=== PATIENT | female | born 1985 | race Caucasian/White ===

== ENCOUNTER 2016-09-11 03:41 | Emergency (ER) | payer MEDICAID ==
[~2016-09-11] VITALS: Ht 165.1 cm; Wt 56.2 kg
[2016-09-11 03:54] VITALS: BP 138/92
== END 2016-09-11 05:09 | disposition home or self-care (01) ==
LOC: ER 03:43
DX: S29.012A Strain of muscle and tendon of back wall of thorax, initial encounter (principal); S16.1XXA Strain of muscle, fascia and tendon at neck level, initial encounter; S66.912A Strain of unspecified muscle, fascia and tendon at wrist and hand level, left hand, initial encounter; V87.8XXA Person injured in other specified noncollision transport accidents involving motor vehicle (traffic), initial encounter; Y93.89 Activity, other specified; Y92.89 Other specified places as the place of occurrence of the external cause; Y99.9 Unspecified external cause status
CPT/HCPCS: 72050; 72074; 73130; 99284; A4606; Z7610

== ENCOUNTER 2016-12-08 00:37 | Emergency (ER) | payer MEDICAID ==
[~2016-12-08] VITALS: Ht 165.1 cm; Wt 56.7 kg
[2016-12-08 00:48] VITALS: BP 124/64
== END 2016-12-08 00:55 | disposition home or self-care (01) ==
LOC: ER 00:38
DX: S90.861A Insect bite (nonvenomous), right foot, initial encounter (principal); S90.561A Insect bite (nonvenomous), right ankle, initial encounter; W57.XXXA Bitten or stung by nonvenomous insect and other nonvenomous arthropods, initial encounter; Y93.89 Activity, other specified; Y92.89 Other specified places as the place of occurrence of the external cause; Y99.9 Unspecified external cause status
CPT/HCPCS: A4606; Z7502; Z7610

== ENCOUNTER 2016-12-27 04:49 | Emergency (ER) | payer MEDICAID ==
[~2016-12-27] VITALS: Ht 165.1 cm; Wt 57.2 kg
[2016-12-27 04:55] VITALS: BP 121/84
--- NOTE | 2016-12-27 05:31 | NUR ---
DR. CORONA AT BEDSIDE
== END 2016-12-27 05:39 | disposition home or self-care (01) ==
LOC: ER 04:50
DX: Z48.00 Encounter for change or removal of nonsurgical wound dressing (principal); S80.212A Abrasion, left knee, initial encounter; S80.211A Abrasion, right knee, initial encounter; W19.XXXA Unspecified fall, initial encounter; Y93.89 Activity, other specified; Y92.89 Other specified places as the place of occurrence of the external cause; Y99.8 Other external cause status
CPT/HCPCS: A4606; Z7502; Z7610

== ENCOUNTER 2017-07-13 02:31 | Emergency (ER) | payer MEDICAID ==
[~2017-07-13] VITALS: Ht 165.1 cm; Wt 57.2 kg
[2017-07-13 02:40] VITALS: BP 144/97
== END 2017-07-13 03:35 | disposition home or self-care (01) ==
LOC: ER 02:31
DX: H61.21 Impacted cerumen, right ear (principal)
CPT/HCPCS: A4606; Z7610

== ENCOUNTER 2025-03-09 19:03 | Emergency (ER) | payer SELFPAY ==
[~2025-03-09] VITALS: Ht 165.1 cm; Wt 67.6 kg
[2025-03-09 19:46] VITALS: BP 134/70; TEMP 98.4; O2SAT 98
[2025-03-09] MEDS ORDERED: TDAP [DIPH/PERTUSSIS/TET] 0.5 ML VIAL IM ONE (19:55)
[2025-03-09] MEDS: TDAP [DIPH/PERTUSSIS/TET] 0.5 ML VIAL IM ONE (19:58)
[2025-03-09] MEDS ORDERED: DOXY100C2 PO (20:09)
[2025-03-09] MEDS ORDERED: CEPH-570 PO (20:09)
== END 2025-03-09 20:48 | disposition home or self-care (01) ==
LOC: ER 19:06
DX: S91.332A Puncture wound without foreign body, left foot, initial encounter (principal); Z88.7 Allergy status to serum and vaccine; X58.XXXA Exposure to other specified factors, initial encounter; Y93.89 Activity, other specified; Y92.89 Other specified places as the place of occurrence of the external cause; Y99.8 Other external cause status
CPT/HCPCS: 90715